=== PATIENT | female | born 2000 | race Caucasian/White ===

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

== ENCOUNTER 2021-01-07 21:18 | Emergency (ER) | payer OTHER ==
--- NOTE | 2021-01-07 22:41 | ED Physician Documentation ---
PD HPI URI - Stated complaint Stated Complaint: COUGH/CONGESTION - Chief complaint Chief Complaint: Resp - History obtained from History obtained from: Patient - History of Present Illness Timing - onset: How many days ago (5) Timing duration: Days (5) Associated symptoms: Chills, Sweats, Productive cough. No: Fever, Sore throat, Chest pain, Dyspnea Improves by: Nothing Recently seen: Clinic ([facility]) - Additional information Additional information: c/o 5 days of cough, chest and nasal congestion, generalized headache, chills and sweats. She has not had a fever. She has had both doses of COVID vaccine. She was assessed for current symptoms earlier this week and COVID test performed 01/06 (results pending). she presents tonight due to worsening cough which was non productive but this evening became productive Review of Systems Constitutional: reports: Chills, Sweats. denies: Fever Ears: denies: Ear pain Throat: denies: Sore throat Respiratory: reports: Cough. 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 HEENT: None Psych: None Musculoskeletal: Other Derm: None - Past Surgical History Past Surgical History: Yes General: Other - Present Medications Home Medications: Ambulatory Orders Medication Instructions Recorded Confirmed No Known Home Medications 01/07/21 01/07/21 - Allergies Allergies/Adverse Reactions: Allergies Allergy/AdvReac Type Severity Reaction Status Date / Time No Known Drug Allergies Allergy Verified 01/07/21 21:36 - Social History Does the pt smoke?: Yes Smoking Status: Current every day smoker Does the pt drink ETOH?: No Does the pt have substance abuse?: No - Immunizations Immunizations are current?: Yes - POLST Patient has POLST: No PD ED PE NORMAL - Vitals Vital signs reviewed: Yes - General General: Alert and oriented X 3, No acute distress, Well developed/nourished - HEENT HEENT: Pharynx benign - Neck Neck: Supple, no meningeal sign - Cardiac Cardiac: RRR, No murmur - Respiratory Respiratory: No respiratory distress, Clear bilaterally Results - Vitals Vitals: Vital Signs - 24 hr 01/07/21 01/07/21 01/08/21 21:33 22:56 00:12 Temperature 37.0 C 37.1 C Heart Rate 84 68 Respiratory 16 16 16 Rate Blood Pressure 119/66 115/64 O2 Saturation 99 98 Oxygen O2 Source Room air - Rads (name of study) chest xray Radiology: Prelim report reviewed, See rad report PD MEDICAL DECISION MAKING - ED course Complexity details: reviewed results, re-evaluated patient, considered differential, d/w patient Departure - Departure Disposition: 01 Home, Self Care Clinical Impression: Upper respiratory infection Qualifiers: URI type: unspecified URI Qualified Code(s): J06.9 - Acute upper respiratory infection, unspecified Condition: Good Instructions: ED Upper Resp Infec No Abx Tx Follow-Up: [facility] [Provider Group] Discharge Date/Time: 01/08/21 00:14
[2021-01-08 00:13] VITALS: BP 115/64
--- NOTE | 2021-01-08 09:03 | XRAY Report ---
PROCEDURE: Chest 2 View X-Ray INDICATIONS: productive cough, dyspnea TECHNIQUE: 2 view(s) of the chest. COMPARISON: None. FINDINGS: Surgical changes and devices: None. Lungs and pleura: No pleural effusions or pneumothorax. Lungs are clear. Mediastinum: Mediastinal contours are normal. Heart size is normal. Bones and chest wall: No suspicious bony abnormalities. Soft tissues appear unremarkable. IMPRESSION: No acute cardiopulmonary abnormality. Reviewed by: Curt Singer on 01/08/2021 8:02 AM [facility] Approved by: Curt Singer on 01/08/2021 8:02 AM [facility] Station ID: [id number]
--- OUTSIDE RECORDS SUMMARY | 2021-01-12 02:22 | EXTERNAL MEDICAL SUMMARY RPT | Continuity of Care Document ---
:2000 Demographics Phone Unavailable Preferred Language Unknown Marital Status Unknown Gnosticist Affiliation Unknown Race Unknown Ethnic Group Unknown Author Organization [facility] Address [address] [place] [address] Phone Social History date description facility [id number]
== END 2021-01-08 00:14 | disposition home or self-care (01) ==
LOC: ED 21:18
DX: J06.9 Acute upper respiratory infection, unspecified (principal); F17.200 Nicotine dependence, unspecified, uncomplicated
CPT/HCPCS: 99282; 99283